=== PATIENT | male | born 1970 | race Hispanic/Latino ===

== ENCOUNTER 2017-06-04 00:10 | Observation (INO) | payer MEDICAID ==
[2017-06-04 00:11] VITALS: BMI 23.6
[2017-06-04 00:21] VITALS: TEMP 98
[2017-06-04 01:27] LABS: BASO % 0.5 % (0.0-2.0); EOS # 0.4 K/uL (0.0-0.7); EOS % 4.3 % (0.0-4.0); HEMATOCRIT 35.9 % (35.0-51.0); LYMPH # 2.3 K/uL (1.0-4.3); LYMPH % 27.1 % (20.0-40.0); MEAN CELL VOLUME 87.4 fl (80.0-94.0); MEAN CORPUSCULAR HEMOGLOBIN 28.4 pg (27.0-31.0); MEAN CORPUSCULAR HGB CONC 32.5 g/dL (33.0-37.0); MEAN PLATELET VOLUME 7.6 fl (7.2-11.7); MONO # 0.7 K/uL (0.0-0.8); MONO % 8.1 % (0.0-10.0); RED CELL DISTRIBUTION WIDTH 13.8 % (11.5-14.5); WHITE BLOOD COUNT 8.3 K/uL (4.8-10.8)
[2017-06-04 01:54] LABS: BLOOD UREA NITROGEN 13 mg/dl (9-20); GFR AFRICAN-AMERICAN > 60; GLUCOSE,RANDOM 93 mg/dL (75-110); POTASSIUM 3.5 MMOL/L (3.6-5.0); SODIUM 139 mmol/l (132-148)
[2017-06-04 01:55] LABS: ALB/GLOB RATIO 1.2 (1.0-2.1); CALCIUM 8.8 mg/dL (8.4-10.2); CARBON DIOXIDE 27 mmol/L (22-30); CHLORIDE 105 mmol/L (98-107); TOTAL PROTEIN 6.2 G/DL (6.3-8.2)
[2017-06-04 01:56] LABS: ALCOHOL SERUM < 10 mg/dl (0-10); ALKALINE PHOSPHATASE 72 U/L (38-126); ALT/SGPT 47 U/L (21-72); AST/SGOT 42 U/L (17-59); BILIRUBIN,TOTAL 0.6 mg/dl (0.2-1.3)
--- NOTE | 2017-06-04 02:02 | ED PDOC ---
HPI: Psych/Substance Abuse Time Seen by Provider: 06/04/17 00:22 Chief Complaint (Nursing): Substance Abuse Chief Complaint (Provider): Substance Abuse ED Caveat: Intoxicated History Per: Patient History/Exam Limitations: intoxication Onset/Duration Of Symptoms: Days (x 1) Current Symptoms Are (Timing): Still Present Additional Complaint(s): Toni is a 47 y/o male who was brought to the ED by EMS for public intoxication. Patient admits to alcohol and cocaine use. Appears agitated in the ED. PMD: Unknown Past Medical History Reviewed: Historical Data, Nursing Documentation, Vital Signs Vital Signs: Last Vital Signs Temp 98.0 F 06/04/17 00:18 Pulse 68 06/04/17 00:18 Resp 18 06/04/17 00:18 BP 152/100 H 06/04/17 00:18 Pulse Ox 100 06/04/17 00:18 - Medical History PMH: Anxiety, Bipolar Disorder, Depression, Chronic Kidney Disease, Schizophrenia Denies: Diabetes, Hepatitis, HIV, HTN, Seizures, Sexually Transmitted Disease - Family History Family History: States: Unknown Family Hx - Social History Alcohol: > 2 Drinks/Day Drugs: Cocaine - Immunization History Hx Tetanus Toxoid Vaccination: No - Home Medications Home Medications: Ambulatory Orders Medication Instructions Recorded No Known Home Med 05/30/17 - Allergies Allergies/Adverse Reactions: Allergies Allergy/AdvReac Type Severity Reaction Status Date / Time Penicillins Allergy RASH Verified 05/31/17 01:22 Review of Systems Review Of Systems: ROS cannot be obtained secondary to pt's inabilty to answer questions. Physical Exam - Reviewed Nursing Documentation Reviewed: Yes Vital Signs Reviewed: Yes - Physical Exam Appears: Positive for: Non-toxic, No Acute Distress Head Exam: Positive for: ATRAUMATIC, NORMAL INSPECTION, NORMOCEPHALIC Skin: Positive for: Normal Color, Warm, Dry Eye Exam: Positive for: EOMI, Normal appearance, PERRL Neck: Positive for: Normal, Painless ROM Cardiovascular/Chest: Positive for: Regular Rate, Rhythm. Negative for: Murmur Respiratory: Positive for: Normal Breath Sounds. Negative for: Accessory Muscle Use, Respiratory Distress Gastrointestinal/Abdominal: Positive for: Normal Exam, Soft. Negative for: Tenderness Back: Positive for: Normal Inspection Extremity: Positive for: Normal ROM. Negative for: Pedal Edema, Deformity Neurologic/Psych: Positive for: Oriented (x 1), Gait (unsteady), Other (Slurred speech) - Laboratory Results Result Diagrams: 06/04/17 01:21 06/04/17 01:21 - ECG O2 Sat by Pulse Oximetry: 100 (RA) Pulse Ox Interpretation: Normal - Critical Care Total Time (In Min): 30 Medical Decision Making Medical Decision Making: Time: 00:38 Initial Impression: 47 y/o intoxicated male Initial Plan: --EKG --Labs ordered Time: 00:52 --Patient is agitated and uncooperative --Ordered Ativan and Haldol IM --High risk for elopement, injury to staff and self --Patient necessitating 4 point restraints --Placed on 1:1 observation Time: 01:06 --Patient admitted to ED-OBS for substance abuse Scribe Attestation: Documented by Lisa Randolph, acting as a scribe for Khurram Darling MD Provider Scribe Attestation: All medical record entries made by the Scribe were at my direction and personally dictated by me. I have reviewed the chart and agree that the record accurately reflects my personal performance of the history, physical exam, medical decision making, and the department course for this patient. I have also personally directed, reviewed, and agree with the discharge instructions and disposition. ED OBSERVATION Date of observation admission: 06/04/17 Time of observation admission: 01:06 - Observation admission statement Patient is being placed in observation because:: Substance abuse - Goals of Observation Goals of observation are:: Clinical sobriety - Progress Note Progress Note: 06/04/17 Time: 01:06 --Patient is resting. Vital signs stable. Time: 02:30 --Patient continues to rest. Vital signs stable. Time: 04:00 --Patient is resting. Vital signs stable. Time: 05:30 --Patient continues to rest. Vital signs stable. Time: 06:21 --Patient is ambulating in the ED and speaking in full sentences. Requesting to go home. --Patient appears clinically sober and is medically stable for discharge. Clinical Impression: Alcohol intoxication Disposition - Clinical Impression Clinical Impression: Alcohol intoxication, Cocaine abuse - Patient ED Disposition Is Patient to be Admitted: No Counseled Patient/Family Regarding: Diagnosis, Need For Followup - Disposition Disposition: Routine/Home Disposition Time: 01:06 Condition: STABLE
[2017-06-04 05:40] VITALS: BP 115/80; PULSE 76; RESP 16
[2017-06-04 05:50] VITALS: O2SAT 100
--- NOTE | 2017-06-04 20:52 | CARD ---
APPROVED REPORT EKG Measurement Heart [id number] <Conclusion> Normal sinus rhythm with sinus arrhythmia Normal ECG
== END 2017-06-04 06:21 | disposition home or self-care (01) ==
LOC: H.ER 00:10 → H.EROBSV 01:06
PROVIDERS: ADMIT Emergency Medicine; ATTEND Emergency Medicine
DX: F10.129 Alcohol abuse with intoxication, unspecified (principal); F14.10 Cocaine abuse, uncomplicated; N18.9 Chronic kidney disease, unspecified; Z86.59 Personal history of other mental and behavioral disorders; Y90.0 Blood alcohol level of less than 20 mg/100 ml
CPT/HCPCS: 80053; 80320; 85025; 93005; 96372; 99285; G0378; J1630; J2060

== ENCOUNTER 2018-08-03 00:46 | Inpatient (IN) | payer MEDICAID ==
[2018-08-03 00:46] VITALS: BMI 25.1
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
[2018-08-03 02:35] LABS: BASO % 0.4 % (0.0-2.0); EOS # 0.4 K/uL (0.0-0.7); EOS % 4.8 % (0.0-4.0); HEMOGLOBIN 12.9 g/dL (12.0-18.0); LYMPH # 1.9 K/uL (1.0-4.3); LYMPH % 24.7 % (20.0-40.0); MEAN CELL VOLUME 84.8 fl (80.0-94.0); MEAN CORPUSCULAR HEMOGLOBIN 28.4 pg (27.0-31.0); MEAN CORPUSCULAR HGB CONC 33.5 g/dL (33.0-37.0); MONO # 0.7 K/uL (0.0-0.8); MONO % 9.6 % (0.0-10.0); NEUT # 4.7 K/uL (1.8-7.0); NEUT % 60.5 % (50.0-75.0); RBC 4.56 Mil/uL (4.40-5.90); RED CELL DISTRIBUTION WIDTH 13.9 % (11.5-14.5); WHITE BLOOD COUNT 7.8 K/uL (4.8-10.8)
[2018-08-03 02:40] LABS: ALB/GLOB RATIO 1.3 (1.0-2.1); ALBUMIN 3.9 g/dL (3.5-5.0); ALT/SGPT 26 U/L (21-72); AST/SGOT 33 U/L (17-59); BLOOD UREA NITROGEN 15 mg/dl (9-20); CALCIUM 8.7 mg/dL (8.4-10.2); GFR NON-AFRICAN AMERICAN > 60
--- NOTE | 2018-08-03 05:09 | ED PDOC ---
- Laboratory Results Result Diagrams: 08/03/18 02:15 08/03/18 02:15 - ECG O2 Sat by Pulse Oximetry: 98 Medical Decision Making Medical Decision Makin Patient care endorsed from MARCIO Lemus to this provider pending crisis evaluation. [id number] As per [employer], patient is to be admitted per Dr. Rousseau diagnosed with schizoaffective bipolar type. ------- Scribe Attestation: Documented by Park Sibley, acting as a scribe for Judy Chou MD. Provider Scribe Attestation: All medical record entries made by the Scribe were at my direction and personally dictated by me. I have reviewed the chart and agree that the record accurately reflects my personal performance of the history, physical exam, medical decision making, and the department course for this patient. I have also personally directed, reviewed, and agree with the discharge instructions and di sposition. Disposition - Clinical Impression Clinical Impression: Suicidal ideation - POA Present On Arrival: None - Disposition Disposition: Admitted as In-Patient Disposition Time: 06:00 Condition: STABLE
[2018-08-03 06:04] LABS: URINE BACTERIA FEW (<OCC); URINE BILIRUBIN NEGATIVE (NEGATIVE); URINE BLOOD NEGATIVE (NEGATIVE); URINE CLARITY SLIGHTY-CLOUDY (Clear); URINE COLOR YELLOW (YELLOW); URINE GLUCOSE (UA) NEG (Normal); URINE LEUKOCYTE ESTERASE NEG Leu/uL (Negative); URINE PROTEIN NEGATIVE (NEGATIVE)
[2018-08-03 06:07] LABS: BARBITURATES, UR NEGATIVE (NEGATIVE); BENZODIAZEPINES, UR NEGATIVE (NEGATIVE); OPIATES, UR NEGATIVE (NEGATIVE); PHENCYCLIDINE, UR NEGATIVE (NEGATIVE)
[2018-08-03] MEDS ORDERED: Alum-Mag Hydrox-Simethicone Susp (30 mL) PO PRN (06:49)
[2018-08-03] MEDS ORDERED: Magnesium Hydroxide Susp 30 ml UD PO PRN (06:49)
[2018-08-03] MEDS ORDERED: DiphenhydrAMINE 50 mg/ml Inj IM PRN (06:49)
--- NOTE | 2018-08-03 06:58 | PCM.BM ---
<Dorina Gayle - Last Filed: 08/03/18 06:56> Treatment Plan Problems - Problems identified on initial assessmt Hopelessness/Helplessness Date Initiated: 08/03/18 Time Initiated: 06:57 Assessment reference: NA Status: Active Medication Nonadherence Date Initiated: 08/03/18 Time Initiated: 06:57 Assessment reference: NA Status: Active Treatment assets and liabiliti Patient Assests: ADL independent, physically healthy, negotiates basic needs, cognitively intact Patient Liabilities: financial problems (homeless) - Milieu Protocol Maintain good personal hygiene: daily Encourage regular showers, daily Remind patient to perform daily oral care, daily Assist patient to perform ADL's Conduct patient checks and document Observation sheet: Q15 minutes Maintain personal safety: every shift Educate patient to report safety concerns to staff, every shift Monitor environment for contraband/sharps Medication safety: Monitor for expected outcome, potential side effects: every shift, Assess barriers to learning: every shift, Assess readiness for medication education: every shift <Rajesh Cardoso J - Last Filed: 08/04/18 17:43> Family Contact Family involvement: Famliy/SO not involved Family contact: Patient declines to allow family contact at present Family contact name: Pt denied. - Goals for Treatment Patient goals for treatment: Due to psychosis pt unable to provide goals for tx. Discharge/Continuing Care - Education Needs Education Needs: Patient Medication, Patient Diagnosis/Disease Process, Patient Coping Skills, Patient Placement options, Patient Community resources, Patient Aftercare Safety Plan - Discharge Discharge Criteria: Tolerates medication w/o severe side effects, Free of paranoid thoughts, Free of agitation, Normal sleep pattern, Ability to care for self, Reduction of target symptoms Discharge to:: [facility] - Treatment Team Participation Discussed with Family/SO: No Was Patient/Family/SO present at Treatment Team Meeting: Yes <Sue Cervantes - Last Filed: 08/07/18 15:34> - Diagnosis (1) Suicidal ideation Status: Acute Interventions: psychotherapy, pharmacotherapy 08/07/18 15:33
--- NOTE | 2018-08-03 11:19 | PCM.PSYCH ---
Initial Psychiatric Evaluation - Initial Psychiatric Evaluation Type of Admission: Voluntary Legal Status: Capacity Chief Complaint (in patient's own words): I AM VERY DEPRESSED AND ANGRY History of Present Illness and Precipitating Events: pt is a 48ys old male with previous psychiatric diagnosis of schizoaffective disorder and polysubstance use, currently in remission, presented to ER with suicidal and homicidal ideation reported increasingly depressed in the context of being homeless, with financial difficulties and having no social report on evaluation pt is guarded evasive , paranoid with poor eye contact , presented as internally preoccupied,, edgy irritable reported passive suicidal ideation without active plan on the unit, denied command hallucinations , denied recent substance use urine toxicology is negative Current Medications: Active Medications Generic Name Dose Route Start Last Admin Trade Name Freq PRN Reason Stop Dose Admin Acetaminophen 650 mg 08/03/18 06:49 Tylenol 325mg Tab PO Q4 PRN pain 4-7 Al Hydrox/Mg Hydrox/Simethicone 30 ml 08/03/18 06:49 Maalox Plus 30 Ml PO Q4 PRN Dyspepsia Diphenhydramine HCl 50 mg 08/03/18 06:49 Benadryl IM Q6 PRN Extrapyramidal S/S Unable PO Diphenhydramine HCl 50 mg 08/03/18 06:49 Benadryl PO Q6 PRN Extrapyramidal Symptoms Diphenhydramine HCl 50 mg 08/03/18 06:49 Benadryl PO HS PRN Sleep Divalproex Sodium 500 mg 08/04/18 09:00 Luiz Riojas(*Bid*) PO DAILY GAYLA Divalproex Sodium 500 mg 08/03/18 22:00 Luiz Riojas(*Bid*) PO HS GAYLA Gabapentin 100 mg 08/03/18 13:00 Neurontin PO TID GAYLA Haloperidol 5 mg 08/03/18 06:49 Haldol PO Q4 PRN Agitation Haloperidol Lactate 5 mg 08/03/18 06:49 Haldol IM Q4 PRN Agitation, Unable to Take PO Magnesium Hydroxide 30 ml 08/03/18 06:49 Milk Of Magnesia PO HS PRN Constipation Risperidone 1 mg 08/04/18 09:00 Risperdal Tab PO DAILY GAYLA Risperidone 1 mg 08/03/18 22:00 Risperdal Tab PO HS GAYLA Past Psychiatric History - Past Psychiatric History Explanation of prior treatment: multiple inpatient hospitalizations, hx of non compliance History of ETOH/Drug Use: hx of cocaine use , utox is negative, denied recent use Pertinent Medical Hx (Current Medical&Sleep Prob, Allergies): Allergies Allergy/AdvReac Type Severity Reaction Status Date / Time Penicillins Allergy RASH Verified 08/03/18 01:21 Divalproex [Depakote DR] 500 mg PO TID #90 tcp 05/17/18 Gabapentin [Neurontin] 300 mg PO TID #90 cap 05/17/18 risperiDONE [RisperDAL Tab] 2 mg PO BID #60 tab 05/17/18 traZODone [Desyrel] 100 mg PO HS #30 tab 05/17/18 Mental Status Examination - Personal Presentation Personal Presentation: Looks older than stated age - Affect Affect: Constricted, Depressed - Motor Activity Motor Activity: Psychomotor Agitation - Reliability in Providing Information Reliability in Providing Information: Poor, due to alteration in thoughts - Speech Speech: Irrelevant - Mood Mood: Depressed, Anxious - Formal Thought Process Formal Thought Process: Paranoia - Obsessions/Compulsions Obsessions: No Compulsions: No - Cognitive Functions Orientation: Person, Place Sensorium: Alert Attention/Concentration: Easily distracted Abstract Thinking: Gary Judgement: Imparied, as evidence by: Poor judgement, Imparied, as evidence by: Lack of insight into illness - Risk Risk: Suicidal, Diminished functioning - Strength & Assets Inventory Strength & Assets Inventory: Life experience - Limitations Additional comments: poor compliance DSM 5 DX - DSM 5 DSM 5 Diagnosis: schizoaffective disorder bipolar polysubstance use in early remission - Recommended/Plan of Treatment Treatment Recommendations and Plan of Treatment: start depakote 500mg bid start risperidone 1mg bid start trazodone 100mg qhs start neurontin 100mg tid cbt group and supportive therapy Prognosis: guarded
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
[2018-08-03 20:50] VITALS: O2SAT 98
[2018-08-03] MEDS ORDERED: Divalproex 500 mg DR(BID formulation) PO SCH (22:00)
[2018-08-04 08:02] LABS: T4 6.33 ug/dl (5.5-11.0)
[2018-08-04] MEDS: Divalproex 500 mg DR(BID formulation) PO SCH (10:04)
--- NOTE | 2018-08-04 13:51 | PCM.PYCHPN ---
Psychiatric Progress Note - Psychiatric Progress Note Patient seen today, length of contact: pt evaluated discussed with team chart reviewed Patient Chief Complaint: I wanted to get cigars from my mother Problems Identified/Issues Discussed: pt evaluated with treatment team, presenting with disorganized and pressured speech , tangential thought process with loose association, paranoid, guarded, angry and irritable, appears internally preoccupied , observed responding to internal stimuli and floridly psychotic, poor insight into illness denied command hallucinations, denied suicidal or homicidal ideation Medical Problems: multiple inpatient hospitalizations, hx of non compliance DSM 5 Symptoms Update: schizoaffective disorder bipolar Medication Change: Yes (increase depakote) Medical Record Reviewed: Yes Mental Status Examination - Cognitive Function Orientation: Person, Place Memory: Impaired Attention: Poor Concentration: Poor Association: Loose Fund of Knowledge: Poor Decription of patient's judgement and insights: poor insight and judgment - Mood Mood: Depressed, Anxious - Affect Affect: Constricted, Depressed Additional comments: labile, angry, irritable - Speech Speech: Loud, Pressured - Formal Thought Process Formal Thought Process: Delusions, Paranoia, Loosening of associations, Flight of ideas, Word Salad, Perservation - Suicidal Ideation Suicidal Ideation: No - Homicidal Ideation Homicidal Ideation: No Goal/Treatment Plan - Goal/Treatment Plan Need for Continued Stay: Severe depression anxiety, Discharge may exacerbated symptoms, Severe functional impairment Progress Toward Problem(s) and Goals/Treatment Plan: increase depakote 500mg biddaily and 750mg qhs, follow up on depakote level on 08/07/18 increase risperidone 1mg daily and 3mg qhs trazodone 100mg qhs neurontin 100mg tid cbt group and supportive therapy obtain collateral information
[2018-08-04] MEDS: Divalproex 250 mg DR(BID formulation) PO SCH (22:09)
--- NOTE | 2018-08-05 09:12 | PCM.PYCHPN ---
Psychiatric Progress Note - Psychiatric Progress Note Patient seen today, length of contact: pt evaluated discussed with team chart reviewed Patient Chief Complaint: pt has remained disorganized and remains irritible and labile.pt still c/o urge to smoke and getting withdrawll from cigarrettes. pt denies suicidal ideation.pt is paranoid and fixated on his picture ID and food card. Medication Change: Yes (increase depakote) Medical Record Reviewed: Yes Mental Status Examination - Cognitive Function Orientation: Person, Place Memory: Impaired Attention: Poor Concentration: Poor Association: Loose Fund of Knowledge: Poor - Mood Mood: Depressed, Anxious - Affect Affect: Constricted, Depressed - Speech Speech: Loud, Pressured - Formal Thought Process Formal Thought Process: Delusions, Paranoia, Loosening of associations, Flight of ideas, Word Salad, Perservation - Suicidal Ideation Suicidal Ideation: No - Homicidal Ideation Homicidal Ideation: No Goal/Treatment Plan - Goal/Treatment Plan Need for Continued Stay: Severe depression anxiety, Discharge may exacerbated symptoms, Severe functional impairment Progress Toward Problem(s) and Goals/Treatment Plan: will continue to stabilize pt with meds. and check VPA level and titrate meds accordingly.
[2018-08-05] MEDS: Divalproex 500 mg DR(BID formulation) PO SCH (09:28)
[2018-08-05] MEDS: Divalproex 250 mg DR(BID formulation) PO SCH (21:00)
[2018-08-06] MEDS: Divalproex 500 mg DR(BID formulation) PO SCH (08:34)
[2018-08-06] MEDS: Divalproex 250 mg DR(BID formulation) PO SCH (21:05)
[2018-08-07] MEDS: Divalproex 500 mg DR(BID formulation) PO SCH (08:37)
--- NOTE | 2018-08-07 13:39 | PCM.PYCHPN ---
Psychiatric Progress Note - Psychiatric Progress Note Patient seen today, length of contact: pt evaluated discussed with team chart reviewed Patient Chief Complaint: I want to go to my mother house Problems Identified/Issues Discussed: pt evaluated , continues to be labile, irritable, pacing in the hallway, observed laughing to self and responding to internal stimuli,poor impulse control, paranoid and delusional thought process, and limited insight, discussed increasing risperidone , encouraged pt to attend groups denied command hallucinations, denied suicidal or homicidal ideation Medical Problems: multiple inpatient hospitalizations, hx of non compliance DSM 5 Symptoms Update: schizoaffective disorder bipolar type Medication Change: Yes (increase risperidone) Medical Record Reviewed: Yes Mental Status Examination - Cognitive Function Orientation: Person, Place Memory: Impaired Attention: Poor Concentration: Poor Association: Loose Fund of Knowledge: Poor - Mood Mood: Depressed, Anxious - Affect Affect: Constricted, Depressed - Speech Speech: Loud, Pressured - Formal Thought Process Formal Thought Process: Delusions, Paranoia, Loosening of associations, Flight of ideas, Word Salad, Perservation - Suicidal Ideation Suicidal Ideation: No - Homicidal Ideation Homicidal Ideation: No Goal/Treatment Plan - Goal/Treatment Plan Need for Continued Stay: Severe depression anxiety, Discharge may exacerbated symptoms, Severe functional impairment Progress Toward Problem(s) and Goals/Treatment Plan: depakote 500mg biddaily and 750mg qhs, follow up on depakote level on 08/08/18 increase risperidone 2mg daily and 3mg qhs trazodone 100mg qhs neurontin 100mg tid cbt group and supportive therapy obtain collateral information
[2018-08-07] MEDS: Divalproex 250 mg DR(BID formulation) PO SCH (21:06)
[2018-08-08] MEDS: Divalproex 500 mg DR(BID formulation) PO SCH ×2 (08:31→21:07)
[2018-08-08] MEDS ORDERED: Risperidone M TAB 2 MG PO SCH (09:00)
--- NOTE | 2018-08-08 11:25 | PCM.PYCHPN ---
Psychiatric Progress Note - Psychiatric Progress Note Patient seen today, length of contact: pt evaluated discussed with team chart reviewed Patient Chief Complaint: I have problems with the court Problems Identified/Issues Discussed: pt evaluated ,continues to be disorganized , labile, irritable, pacing in the hallway,speech loud, tangential , with loose association and word salad observed laughing to self and responding to internal stimuli,poor impulse contro l, paranoid and delusional thought process, and limited insight, discussed changing risperidone to haldol and increasing depakote, encouraged patient to attend groups denied command hallucinations, denied suicidal or homicidal ideation Medical Problems: multiple inpatient hospitalizations, hx of non compliance DSM 5 Symptoms Update: schizoaffective disorder bipolar Medication Change: Yes (start haldol) Medical Record Reviewed: Yes Mental Status Examination - Cognitive Function Orientation: Person, Place Memory: Impaired Attention: Poor Concentration: Poor Association: Loose Fund of Knowledge: Poor - Mood Mood: Depressed, Anxious - Affect Affect: Constricted, Depressed - Speech Speech: Loud, Pressured - Formal Thought Process Formal Thought Process: Delusions, Paranoia, Loosening of associations, Flight of ideas, Word Salad, Perservation - Suicidal Ideation Suicidal Ideation: No - Homicidal Ideation Homicidal Ideation: No Goal/Treatment Plan - Goal/Treatment Plan Need for Continued Stay: Severe depression anxiety, Discharge may exacerbated symptoms, Severe functional impairment Progress Toward Problem(s) and Goals/Treatment Plan: depakote level noted 33, increase depakote to 500mg daily and 1500mg qhs start haldol 5mg tid with cogentin 1mg tid trazodone 100mg qhs neurontin 100mg tid cbt group and supportive therapy obtain collateral information
[2018-08-09] MEDS: Divalproex 500 mg DR(BID formulation) PO SCH ×2 (09:00→21:11)
--- NOTE | 2018-08-09 16:46 | PCM.PYCHPN ---
Psychiatric Progress Note - Psychiatric Progress Note Patient seen today, length of contact: pt evaluated discussed with team chart reviewed Patient Chief Complaint: I want to leave in five days so I can smoke Problems Identified/Issues Discussed: pt evaluated ,less irritable and less labile with the increase in depakote, no reported side effects ,continues to be disorganized , tangential thought process , with loose association and word salad observed laughing to self and responding to internal stimuli, paranoid and delusional thought process, and limited insight, discussed haldol and possible starting haldol decanoate to ensure compliance encouraged patient to attend groups denied command hallucinations, denied suicidal or homicidal ideation Medical Problems: multiple inpatient hospitalizations, hx of non compliance DSM 5 Symptoms Update: schizoaffective disorder bipolar Medication Change: Yes (increase haldol) Medical Record Reviewed: Yes Mental Status Examination - Cognitive Function Orientation: Person, Place Memory: Impaired Attention: Poor Concentration: Poor Association: Loose Fund of Knowledge: Poor - Mood Mood: Depressed, Anxious - Affect Affect: Constricted, Depressed - Speech Speech: Loud, Pressured - Formal Thought Process Formal Thought Process: Delusions, Paranoia, Loosening of associations, Flight of ideas, Word Salad, Perservation - Suicidal Ideation Suicidal Ideation: No - Homicidal Ideation Homicidal Ideation: No Goal/Treatment Plan - Goal/Treatment Plan Need for Continued Stay: Severe depression anxiety, Discharge may exacerbated symptoms, Severe functional impairment Progress Toward Problem(s) and Goals/Treatment Plan: depakote 500mg daily and 1500mg qhs , follow up on depakote level 08/12/18 increase haldol 5mg bid and 10mg qhs with cogentin 1mg trazodone 100mg qhs neurontin 100mg tid cbt group and supportive therapy referral to [facility] services
[2018-08-10] MEDS: Divalproex 500 mg DR(BID formulation) PO SCH ×2 (08:34→21:00)
--- NOTE | 2018-08-10 10:26 | PCM.PYCHPN ---
Psychiatric Progress Note - Psychiatric Progress Note Patient seen today, length of contact: pt evaluated discussed with team chart reviewed Patient Chief Complaint: I have to leave ,I need to smoke cigarettes Problems Identified/Issues Discussed: pt evaluated ,continues to be labile , irritable, pacing in the hallway, speech loud and pressured, tangential thought process with loose association, pt observed internally preoccupied, talking to self and responding to internal stimuli, pt verbally threatening , requesting to be discharged , signed 48 hour notice stating he must leave so he can start smoking cigarettes , concrete thought process and limited insight into illness , pt denied command hallucinations, denied suicidal or homicidal ideation Medical Problems: multiple inpatient hospitalizations, hx of non compliance Medication Change: No Medical Record Reviewed: Yes Mental Status Examination - Cognitive Function Orientation: Person, Place Memory: Impaired Attention: Poor Concentration: Poor Association: Loose Fund of Knowledge: Poor - Mood Mood: Depressed, Anxious - Affect Affect: Constricted, Depressed - Speech Speech: Loud, Pressured - Formal Thought Process Formal Thought Process: Delusions, Paranoia, Loosening of associations, Flight of ideas, Word Salad, Perservation - Suicidal Ideation Suicidal Ideation: No - Homicidal Ideation Homicidal Ideation: No Goal/Treatment Plan - Goal/Treatment Plan Need for Continued Stay: Severe depression anxiety, Discharge may exacerbated symptoms, Severe functional impairment Progress Toward Problem(s) and Goals/Treatment Plan: pt continues to be ddisorganized and presenting with labile affect, needs further stabilization, pt signed 48 hour notice requesting to be discharged, pt will be referred for screening for involuntary admission as continues to need further stabilization depakote 500mg daily and 1500mg qhs , follow up on depakote level 08/12/18 haldol 5mg bid and 10mg qhs with cogentin 1mg trazodone 100mg qhs neurontin 100mg tid cbt group and supportive therapy referral to [facility] services
[2018-08-11] MEDS: Divalproex 500 mg DR(BID formulation) PO SCH (09:30)
[2018-08-11 09:40] VITALS: BP 126/73; PULSE 86; RESP 18
[2018-08-11 09:41] VITALS: TEMP 96.5
--- NOTE | 2018-08-11 11:44 | PCM.BM ---
Treatment Plan Problems - Problems identified on initial assessmt Hopelessness/Helplessness Date Initiated: 08/03/18 Time Initiated: 06:57 Assessment reference: NA Status: Active Medication Nonadherence Date Initiated: 08/03/18 Time Initiated: 06:57 Assessment reference: NA Status: Active Treatment assets and liabiliti Patient Assests: ADL independent, physically healthy, negotiates basic needs, cognitively intact Patient Liabilities: financial problems (homeless) - Milieu Protocol Maintain good personal hygiene: daily Encourage regular showers, daily Remind patient to perform daily oral care, daily Assist patient to perform ADL's Conduct patient checks and document Observation sheet: Q15 minutes Maintain personal safety: every shift Educate patient to report safety concerns to staff, every shift Monitor environment for contraband/sharps Medication safety: Monitor for expected outcome, potential side effects: every shift, Assess barriers to learning: every shift, Assess readiness for medication education: every shift Milieu Narrative: pt continues to be ddisorganized and presenting with labile affect, needs further stabilization, pt signed 48 hour notice requesting to be discharged, pt will be referred for screening for involuntary admission as continues to need further stabilization depakote 500mg daily and 1500mg qhs , follow up on depakote level 08/12/18 haldol 5mg bid and 10mg qhs with cogentin 1mg trazodone 100mg qhs neurontin 100mg tid cbt group and supportive therapy referral to [facility] services Family Contact Family involvement: Famdevin/SO not involved Family contact: Patient declines to allow family contact at present Family contact name: Pt denied. - Goals for Treatment Patient goals for treatment: Due to psychosis pt unable to provide goals for tx. Discharge/Continuing Care - Education Needs Education Needs: Patient Medication, Patient Diagnosis/Disease Process, Patient Coping Skills, Patient Placement options, Patient Community resources, Patient Aftercare Safety Plan - Discharge Discharge Criteria: Tolerates medication w/o severe side effects, Free of paranoid thoughts, Free of agitation, Normal sleep pattern, Ability to care for self, Reduction of target symptoms Discharge to:: [facility] - Treatment Team Participation Patient/Family/SO Statement: pt continues to be ddisorganized and presenting with labile affect, needs further stabilization, pt signed 48 hour notice requesting to be discharged, pt will be referred for screening for involuntary admission as continues to need further stabilization depakote 500mg daily and 1500mg qhs , follow up on depakote level 08/12/18 haldol 5mg bid and 10mg qhs with cogentin 1mg trazodone 100mg qhs neurontin 100mg tid cbt group and supportive therapy referral to [facility] services Discussed with Family/SO: No Was Patient/Family/SO present at Treatment Team Meeting: Yes Treatment Plan Review - Problem Hopelessness/Helplessness Time Initiated: :57 Medication Nonadherence Time Initiated: :57 - Discharge / Continuing Care Discharge to:: [facility]: Outpatient therapy Health Needs: Doctor appointments (Pt to leave AMA on 08/11/18. Pt denied any questions or concerns at this time. Pt will still be given scripts upon discharge. Pt reported his plan is to get his ID from his mother's home and go to [facility] for housing. )
--- NOTE | 2018-08-11 15:40 | PCM.PYCHDC ---
Mental Status Examination - Mental Status Examination Orientation: Person, Place Memory: Intact Mood: Neutral Affect: Broad Speech: Loud Attention: WNL Concentration: WNL Association: WNL Fund of Knowledge: WNL Formal Thought Process: Circumstantial Description of patient's judgement and insight: poor insight and judgment Psychotic Thoughts and Behaviors: pt denied perceptual disturbances, non elicited Suicidal Ideation: No Current Homicidal Ideation?: No Discharge Summary - Discharge Note Reason for Hospitalization: pt is a 48ys old male with previous psychiatric diagnosis of schizoaffective disorder and polysubstance use, currently in remission, presented to ER with suicidal and homicidal ideation reported increasingly depressed in the context of being homeless, with financial difficulties and having no social report on evaluation pt is guarded evasive , paranoid with poor eye contact , presented as internally preoccupied,, edgy irritable reported passive suicidal ideation without active plan on the unit, denied command hallucinations , denied recent substance use urine toxicology is negative Laboratory Data: Abnormal Lab Results 08/11/18 08:02 Valproic Acid 57.0 Consultations:: List each consultation separately and include: 1. Reason for request. 2. Findings. 3. Follow-up Summary of Hospital Course include:: 1. Description of specific treatment plan utilized for patients during their course of treatmen. 2. Summarize the time- course for resolution of acute symptoms and/or regressed behaviors. 3. Describe issues identified and worked on during hospitalization. 4. Describe medication utilized. 5. Describe medical problems identified and treated. 6. Reassessment of suicide risk Summary of Hospital Course: pt on admission was labile iritable, loud pressured speech, pt was started on risperidone with poor effect, it was crosstitrated to haldol pt was also started on depakote, it was uptitrated to 2000 mg with depakote level 57 pt became less labile and less disorganized, signed 48 hour notice requesting discharge, pt was referred for screening by [facility] for involuntary admission for continuity of treatment, pt was found not to meet criteria for involuntary admission , pt was discharged against medical advise , on discharge mental status was stable, pt denied any current suicidal or homicidal ideation, denied perceptual disturbances - Diagnosis (1) Suicidal ideation Status: Acute - Final Diagnosis (DSM 5) Condition upon Discharge: STABLE DSM 5: schizoaffective disorder bipolar type Disposition: HOME/ ROUTINE Follow-up Treatment Plan: pt continues to be ddisorganized and presenting with labile affect, needs further stabilization, pt signed 48 hour notice requesting to be discharged, pt will be referred for screening for involuntary admission as continues to need further stabilization depakote 500mg daily and 1500mg qhs , follow up on depakote level 08/12/18 haldol 5mg bid and 10mg qhs with cogentin 1mg trazodone 100mg qhs neurontin 100mg tid cbt group and supportive therapy referral to [facility] services Prescriptions/Medication Reconciliation: Benztropine [Cogentin] 1 mg PO HS 30 Days #30 tab Benztropine [Cogentin] 1 mg PO BID 30 Days #60 tab Divalproex [Depakote DR(*BID*)] 1,500 mg PO HS 30 Days #90 tcp Divalproex [Depakote DR(*BID*)] 500 mg PO DAILY 30 Days #30 tcp Gabapentin [Neurontin] 100 mg PO TID 30 Days #90 cap Haloperidol [Haldol] 10 mg PO HS 30 Days #30 tab Haloperidol [Haldol] 5 mg PO BID 30 Days #60 tab - Antipsychotic Medications Pt discharged on 2 or more routine antipsychotic medications: No
== END 2018-08-11 12:00 | disposition home or self-care (01) | DRG 750 ==
LOC: H.ER 00:46 → H.ERHOLD 05:21 → H.PSYCH 06:42
PROVIDERS: ADMIT Psychiatry & Neurology Psychiatry; ATTEND Psychiatry & Neurology Psychiatry
PROC: GZHZZZZ Group Psychotherapy (ICD-10-PCS; principal; 2018-08-03)
PROC: GZ58ZZZ Individual Psychotherapy, Cognitive-Behavioral (ICD-10-PCS; 2018-08-03)
DX: F25.0 Schizoaffective disorder, bipolar type (principal); R45.851 Suicidal ideations; R45.850 Homicidal ideations; F41.9 Anxiety disorder, unspecified; F17.210 Nicotine dependence, cigarettes, uncomplicated; Z91.19 Patient's noncompliance with other medical treatment and regimen; Z88.0 Allergy status to penicillin; Z59.0 Homelessness; Z87.442 Personal history of urinary calculi

== ENCOUNTER 2018-08-14 19:10 | Emergency (ER) | payer MEDICAID ==
[2018-08-14 19:11] VITALS: BMI 25.1
[2018-08-14 19:30] VITALS: BP 119/82; PULSE 104; RESP 20; O2SAT 95
[2018-08-14] MEDS ORDERED: Sodium Chloride 0.9% 1,000 ML IV STA (20:05)
--- NOTE | 2018-08-14 21:49 | ED PDOC ---
HPI: Psych/Substance Abuse Time Seen by Provider: 08/14/18 19:33 Chief Complaint (Nursing): Substance Abuse Chief Complaint (Provider): Substance Abuse History Per: Patient, EMS Onset/Duration Of Symptoms: Hrs (HEAD TEACHER) Current Symptoms Are (Timing): Still Present Modifying Factor(s): Alcohol, Cocaine Additional Complaint(s): 48 year old male with a history of alcohol abuse, substance abuse, and schizoaffective disorder brought in by EMS for public intoxication. Patient was brought in after he was found sitting on a sidewalk and appeared intoxicated. He admits to vomiting once and using alcohol and cocaine but denies any other complaints. On arrival he was noted to be febrile which he was unaware of. PMD: none provided Past Medical History Reviewed: Historical Data, Nursing Documentation, Vital Signs Vital Signs: Last Vital Signs Temp 101.3 F H 08/14/18 19:27 Pulse 104 H 08/14/18 19:27 Resp 20 08/14/18 19:27 BP 119/82 08/14/18 19:27 Pulse Ox 95 08/14/18 19:27 - Medical History PMH: Anxiety, Bipolar Disorder, Depression, Kidney Stones, Chronic Kidney Disease, Schizophrenia Denies: Asthma, Bronchitis, Diabetes, Hepatitis, HIV, HTN, Seizures, Sexually Transmitted Disease - Family History Family History: States: Unknown Family Hx - Social History Alcohol: Other (yes) Drugs: Cocaine - Immunization History Hx Tetanus Toxoid Vaccination: No Hx Influenza Vaccination: No Hx Pneumococcal Vaccination: No - Home Medications Home Medications: Ambulatory Orders Medication Instructions Recorded Benztropine [Cogentin] 1 mg PO BID 30 Days #60 tab 08/11/18 Benztropine [Cogentin] 1 mg PO HS 30 Days #30 tab 08/11/18 Divalproex [Depakote DR(*BID*)] 1,500 mg PO HS 30 Days #90 tcp 08/11/18 Divalproex [Depakote DR(*BID*)] 500 mg PO DAILY 30 Days #30 tcp 08/11/18 Gabapentin [Neurontin] 100 mg PO TID 30 Days #90 cap 08/11/18 Haloperidol [Haldol] 5 mg PO BID 30 Days #60 tab 08/11/18 Haloperidol [Haldol] 10 mg PO HS 30 Days #30 tab 08/11/18 - Allergies Allergies/Adverse Reactions: Allergies Allergy/AdvReac Type Severity Reaction Status Date / Time Penicillins Allergy RASH Verified 08/14/18 19:27 Review of Systems ROS Statement: Except As Marked, All Systems Reviewed And Found Negative Psych: Positive for: Other (intoxicated) Physical Exam - Reviewed Nursing Documentation Reviewed: Yes Vital Signs Reviewed: Yes - Physical Exam Appears: Positive for: No Acute Distress (febrile) Head Exam: Positive for: ATRAUMATIC, NORMOCEPHALIC Skin: Positive for: Normal Color, Dry Eye Exam: Positive for: Normal appearance, EOMI, PERRL Cardiovascular/Chest: Positive for: Tachycardia, Other (regular rhythm) Respiratory: Positive for: Normal Breath Sounds. Negative for: Respiratory Distress Gastrointestinal/Abdominal: Positive for: Normal Exam, Soft. Negative for: Tenderness Extremity: Positive for: Normal ROM (upper and lower). Negative for: Pedal Edema, Deformity Neurologic/Psych: Positive for: Alert, Oriented - Laboratory Results Result Diagrams: 08/15/18 00:14 08/15/18 00:14 - ECG O2 Sat by Pulse Oximetry: 95 (RA) Pulse Ox Interpretation: Normal Medical Decision Making Medical Decision Making: Time: 2003 Impression: 48 yo bought in for intoxication with febrile illness Initial Plan: --Labs --IV fluids Initially reviewed labs and revealed markedly elevated CPK levels which are indicative of rhabdomyolysis. Patient was given a bolus. It lowered his levels significantly. He will receive an additional 2 liters and be discharged. - Scribe Attestation: Documented by Enid Seo, acting as a scribe for Khurram Darling MD Provider Scribe Attestation: All medical record entries made by the Scribe were at my direction and personally dictated by me. I have reviewed the chart and agree that the record accurately reflects my personal performance of the history, physical exam, medical decision making, and the department course for this patient. I have also personally directed, reviewed, and agree with the discharge instructions and disposition. Disposition - Clinical Impression Clinical Impression: Rhabdomyolysis, Cocaine abuse - Patient ED Disposition Is Patient to be Admitted: No - Disposition Disposition: Routine/Home Disposition Time: 04:40 Condition: STABLE Instructions: Rhabdomyolysis, Cocaine Use Disorder Forms: [employer] (Kazakh)
[2018-08-15 00:23] LABS: BASO % 0.6 % (0.0-2.0); EOS % 0.5 % (0.0-4.0); HEMOGLOBIN 13.4 g/dL (12.0-18.0); LYMPH # 1.4 K/uL (1.0-4.3); LYMPH % 21.8 % (20.0-40.0); MEAN CELL VOLUME 86.2 fl (80.0-94.0); MEAN CORPUSCULAR HEMOGLOBIN 28.1 pg (27.0-31.0); MEAN CORPUSCULAR HGB CONC 32.6 g/dL (33.0-37.0); MEAN PLATELET VOLUME 8.4 fl (7.2-11.7); MONO # 1.1 K/uL (0.0-0.8); MONO % 16.6 % (0.0-10.0); NEUT % 60.5 % (50.0-75.0); NRBC % 0.1 % (0.0-0.0); RBC 4.76 Mil/uL (4.40-5.90); RED CELL DISTRIBUTION WIDTH 14.6 % (11.5-14.5); WHITE BLOOD COUNT 6.6 K/uL (4.8-10.8)
[2018-08-15 00:34] LABS: ALB/GLOB RATIO 1.3 (1.0-2.1); ALBUMIN 4.3 g/dL (3.5-5.0); ALT/SGPT 44 U/L (21-72); AST/SGOT 106 U/L (17-59); BLOOD UREA NITROGEN 31 mg/dl (9-20); CALCIUM 8.8 mg/dL (8.4-10.2); GFR NON-AFRICAN AMERICAN > 60
[2018-08-15 00:39] LABS: BARBITURATES, UR NEGATIVE (NEGATIVE)
[2018-08-15 00:40] LABS: BENZODIAZEPINES, UR NEGATIVE (NEGATIVE); OPIATES, UR NEGATIVE (NEGATIVE); PHENCYCLIDINE, UR NEGATIVE (NEGATIVE)
[2018-08-15 00:43] LABS: SQUAMOUS EPITHIAL < 1 /hpf (0-5); URINE BILIRUBIN NEGATIVE (NEGATIVE); URINE BLOOD NEGATIVE (NEGATIVE); URINE CLARITY CLEAR (Clear); URINE COLOR YELLOW (YELLOW); URINE GLUCOSE (UA) NEG (Normal); URINE LEUKOCYTE ESTERASE NEG Leu/uL (Negative); URINE PROTEIN NEGATIVE (NEGATIVE); URINE UROBILINOGEN 0.2-1.0 mg/dL (0.2-1.0)
[2018-08-15] MEDS ORDERED: Lactated Ringer's 1,000 ML IV STA ×4 (01:03→03:38)
[2018-08-15 03:26] VITALS: TEMP 98.8
== END 2018-08-15 06:55 | disposition home or self-care (01) ==
LOC: H.ER 19:10
DX: M62.82 Rhabdomyolysis (principal); F14.10 Cocaine abuse, uncomplicated; Z86.59 Personal history of other mental and behavioral disorders; N18.9 Chronic kidney disease, unspecified; Z87.442 Personal history of urinary calculi; Z88.0 Allergy status to penicillin
CPT/HCPCS: 80053; 80320; 80324; 80345; 80346; 80349; 80353; 80358; 80361; 81003; 82550; 82948; 83605; 83992; 85025; 87804; 96374; 99284; J2405; J7030; J7120